=== PATIENT | female | born 1975 | race American Indian/Alaskan Native ===

== ENCOUNTER 2016-09-26 20:00 | Emergency (ER) | payer SELFPAY ==
[2016-09-26 20:07] VITALS: BP 173/112
[2016-09-26] MEDS ORDERED: TYLENOL ONE (20:36)
[2016-09-26] MEDS ORDERED: TYLENOL PO ONE (20:43)
[2016-09-26 20:55] LABS: Basophils % (Auto) 0.4 % (0.0-1.8); Hematocrit 38.1 % (30.3-42.9); Hemoglobin 12.2 gm/dl (10.1-14.3); Mean Corpuscular HGB Conc 32 % (30-34); Mean Corpuscular Hemoglobin 27 pg (28-32); Mean Corpuscular Volume 84 fl (79-97); Platelet Count 256 K/mm3 (140-440); Red Blood Count 4.53 M/mm3 (3.65-5.03); Red Cell Distribution Width 14.6 % (13.2-15.2); White Blood Count 7.8 K/mm3 (4.5-11.0)
--- NOTE | 2016-09-26 23:13 | Ultrasound Report ---
FINAL REPORT EXAM: US OB TRANSVAGINAL HISTORY: vaginal bleed TECHNIQUE: Real time transabdominal and transvaginal pelvic ultrasound. Initially, transabdominal scanning was performed. Subsequently, transvaginal scanning was performed to better evaluate the uterus and ovaries. PRIORS: None FINDINGS: Limited examination performed. Patient had to be terminated because of severe pain. Uterus measures 11.8 x 5.4 x 5.5 cm. Endometrium is 8.6 mm. Heterogeneous nonvascular masslike structure in the lower uterine segment and cervix measures approximately 2.2 x 4.5 cm. The ovaries are not seen. No free fluid. No intrauterine gestational sac seen. IMPRESSION: 1. Masslike lesion within the lower uterine segment and cervix, most likely blood clot. Molar felt to be less likely, follow-up recommended. Early gestation, spontaneous , or ectopic all still possible.
--- NOTE | 2016-09-26 23:14 | Ultrasound Report ---
FINAL REPORT EXAM: US OB < = 14 WEEKS FETUS HISTORY: vaginal bleed TECHNIQUE: Real time transabdominal and transvaginal pelvic ultrasound. Initially, transabdominal scanning was performed. Subsequently, transvaginal scanning was performed to better evaluate the uterus and ovaries. PRIORS: None FINDINGS: Limited examination performed. Patient had to be terminated because of severe pain. Uterus measures 11.8 x 5.4 x 5.5 cm. Endometrium is 8.6 mm. Heterogeneous nonvascular masslike structure in the lower uterine segment and cervix measures approximately 2.2 x 4.5 cm. The ovaries are not seen. No free fluid. No intrauterine gestational sac seen. IMPRESSION: 1. Masslike lesion within the lower uterine segment and cervix, most likely blood clot. Molar felt to be less likely, follow-up recommended. Early gestation, spontaneous , or ectopic all still possible.
--- NOTE | 2016-09-28 05:05 | ED Elopement Review ---
ED Pt Elopement review - Results review Lab results: Laboratory Tests 09/26/16 09/26/16 09/26/16 20:26 20:26 20:37 WBC 7.8 RBC 4.53 Hgb 12.2 Hct 38.1 MCV 84 MCH 27 L MCHC 32 RDW 14.6 Plt Count 256 Lymph % (Auto) 32.0 [place] % (Auto) 7.5 H Eos % (Auto) 1.0 Baso % (Auto) 0.4 Lymph # 2.5 [place] # 0.6 Eos # 0.1 Baso # 0.0 Seg Neutrophils % 59.1 Seg Neutrophils # 4.6 HCG, Quant 56702 H Blood Type O POSITIVE Antibody Screen Negative - Call Back decision Pt Call Back Decision: Call pt to return to ED [facility] (return today for repeat hcg , no IUP (see US), bp elevated need repeat)
== END 2016-09-27 00:41 | disposition left against medical advice (07) ==
LOC: ED 20:00
DX: O20.9 Hemorrhage in early pregnancy, unspecified (principal); Z3A.12 12 weeks gestation of pregnancy; Z53.21 Procedure and treatment not carried out due to patient leaving prior to being seen by health care provider
CPT/HCPCS: 36415; 76801; 76817; 84702; 85025; 86850; 86900; 86901

== ENCOUNTER 2020-10-01 17:10 | Emergency (ER) | payer SELFPAY ==
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
[2020-10-01 18:43] LABS: Basophils # (Auto) 0.1 K/mm3 (0.0-0.1); Eosinophils # (Auto) 0.1 K/mm3 (0.0-0.4); Eosinophils % (Auto) 0.9 % (0.0-4.3); Hematocrit 41.9 % (30.3-42.9); Hemoglobin 13.5 gm/dl (10.1-14.3); Lymphocytes % (Auto) 29.3 % (13.4-35.0); Mean Corpuscular HGB Conc 32 % (30-34); Mean Corpuscular Volume 83 fl (79-97); Monocytes # (Auto) 0.4 K/mm3 (0.0-0.8); Monocytes % (Auto) 5.5 % (0.0-7.3); Platelet Count 266 K/mm3 (140-440); Red Blood Count 5.05 M/mm3 (3.65-5.03); Red Cell Distribution Width 16.1 % (13.2-15.2)
[2020-10-01 19:00] LABS: Alanine Aminotransferase 9 units/L (7-56); BUN/Creatinine Ratio 14; Blood Urea Nitrogen 11 mg/dL (7-17); Calcium 9.4 mg/dL (8.4-10.2); Hemolysis Index 8
[2020-10-01 19:12] LABS: Bacteria,Urine 1+ /HPF (Negative); Bilirubin,Urine NEG (Negative); Blood,Urine NEG (Negative); Color,Urine Yellow (Yellow); Mucus,Urine 1+ /HPF; Protein,Urine <15 mg/dL mg/dL (Negative); Urobilinogen,Urine < 2.0 mg/dL (<2.0)
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
[2020-10-02 07:41] VITALS: BP 191/97
== END 2020-10-02 00:20 | disposition home or self-care (01) ==
LOC: ED 17:10
DX: O16.1 Unspecified maternal hypertension, first trimester (principal); O26.891 Other specified pregnancy related conditions, first trimester; R10.9 Unspecified abdominal pain; Z3A.01 Less than 8 weeks gestation of pregnancy; Z98.890 Other specified postprocedural states; Z79.899 Other long term (current) drug therapy; V49.49XA Driver injured in collision with other motor vehicles in traffic accident, initial encounter; Y92.410 Unspecified street and highway as the place of occurrence of the external cause; Y93.89 Activity, other specified; Y99.8 Other external cause status
CPT/HCPCS: 36415; 76801; 80053; 81001; 84702; 85025